=== PATIENT | male | born 1985 | race Caucasian/White ===

== ENCOUNTER 2016-10-04 17:36 | Emergency (ER) | payer OTHER ==
[2016-10-04 17:54] VITALS: BP 128/75
[2016-10-04] MEDS ORDERED: Acetaminophen TAB* 325 MG PO ONE (18:54)
--- NOTE | 2016-10-04 19:41 | RAD ---
Indication: Medial LEFT knee pain. Suspected meniscal tear. Assess for arthritis. Symptoms onset following injury. Comparison: No relevant prior exams available on the [facility] P[facility] for comparison. Technique: LEFT knee: Weightbearing AP, tunnel, lateral, sunrise views. Report: Normal articular alignment. Negative for effusion or fracture. Mild medial joint space narrowing and associated subchondral sclerosis at the medial tibial plateau. Unremarkable soft tissue contours. IMPRESSION: Probable partial thickness degeneration of the medial joint compartment hyaline articular cartilage.
--- NOTE | 2016-10-04 20:06 | ED ---
Lower Extremity - HPI Summary HPI Summary: Pt here w/ Lt knee pain starting yesterday. Was simply walking when he noticed pain along medial aspect of knee, moving into proximal tibia. Has some tingling along lateral aspect of tibia at rest, but resolvd w/ movement. Feels better elevated, slightly flexed and non weight bearing. Worse w/ weight bearing. Has not taken anything for pain as he doesn't like to take pills - agrees to try something today. Has h/o GI ulcers so will avoid NSAID's. No previous h/o knee injury and no trauma to explain sudden onset of pain yesterday. - History of Current Complaint Chief Complaint: EDExtremityLower Stated Complaint: LT KNEE INJURY Time Seen by Provider: 10/04/16 18:15 Hx Obtained From: Patient Pain Intensity: 4 - Allergies/Home Medications Allergies/Adverse Reactions: Allergies Allergy/AdvReac Type Severity Reaction Status Date / Time No Known Allergies Allergy Verified 03/22/16 15:29 PMH/Surg Hx/FS Hx/Imm Hx Previously Healthy: Yes Endocrine/Hematology History: Denies: Hx Anticoagulant Therapy, Hx Blood Disorders, Hx Diabetes, Hx Thyroid Disease Cardiovascular History: Denies: Hx Hypertension Respiratory History: Denies: Hx Asthma, Hx Chronic Obstructive Pulmonary Disease (COPD) GI History: Reports: Hx Ulcer - takes omeprazole as needed Musculoskeletal History: Reports: Other Musculoskeletal History - Lt ankle injury w/ lig tears as adolescent - no residual complications - Cancer History Cancer Type, Location and Year: none Infectious Disease History: No Infectious Disease History: Denies: Hx Hepatitis, Hx Human Immunodeficiency Virus (HIV), Traveled Outside the [place] in Last 30 Days - Family History Known Family History: Negative: Renal Disease, Blood Disorder, Other - NO CANCER HISTORY; UNCLE HAD KIDNEY STONES Family History: no cardio-vascular issues in family lineage - Social History Occupation: Employed Full-time - [employer] Alcohol Use: Occasionally Hx Substance Use: No Substance Use Type: Reports: None Hx Tobacco Use: Yes Smoking Status (MU): Former Smoker Review of Systems Constitutional: Negative Negative: Fever, Chills Negative: Chest Pain Negative: Shortness Of Breath Musculoskeletal: Other - see HPI Negative: Rash, Bruising Neurological: Other - see HPI Psychological: Normal All Other Systems Reviewed And Are Negative: Yes Physical Exam Triage Information Reviewed: Yes Vital Signs On Initial Exam: Initial Vitals Temp Pulse Resp BP Pulse Ox 98.2 F 89 17 128/75 97 10/04/16 17:51 10/04/16 17:51 10/04/16 17:51 10/04/16 17:51 10/04/16 17:51 Vital Signs Reviewed: Yes Appearance: Positive: Well-Appearing, No Pain Distress, Well-Nourished Skin: Positive: Warm, Dry - no erythema, no ecchymosis, no edema Head/Face: Positive: Normal Head/Face Inspection Eyes: Positive: Normal, EOMI, Conjunctiva Clear ENT: Positive: Hearing grossly normal Respiratory/Lung Sounds: Positive: Breath Sounds Present Cardiovascular: Positive: Normal, Pulses are Symmetrical in both Upper and Lower Extremities Musculoskeletal: Positive: Strength/ROM Intact, Pain @ - internal/external rotation of tibia/fibula; all other special tests are neg Neurological: Positive: Normal, Sensory/Motor Intact, Alert, Oriented to Person Place, Time, CN Intact II-III Psychiatric: Positive: Normal Diagnostics - Vital Signs Vital Signs Temp Pulse Resp BP Pulse Ox 10/04/16 17:54 98.2 F 89 18 128/75 98 10/04/16 17:51 98.2 F 89 17 128/75 97 - Laboratory Lab Statement: Any lab studies that have been ordered have been reviewed, and results considered in the medical decision making process. Lower Extremity Course/Dx - Course Course Of Treatment: Pt here w/ abrupt Lt knee pain w/o trauma. Clincal exam suspicious for medial meniscal injury vs. arthritis. XR reveals medial joint space narrowing and associated subchondral sclerosis at medial tibial plateau which correlates w/ clinical exam. Pt explains this is a worker's comp case and he does not have a PCP. Completed intial paperwork here today but explained he needs to establish w/ PCP who handles worker's comp cases. Pt agrees w/ plan. NOTE: no NSAID's w/ h/o GI ulcers. Recommend non-weight bearing and acetaminophen w/ use of topical analgesics. - Diagnoses Provider Diagnoses: Arthritis of left knee Discharge - Discharge Plan Condition: Stable Disposition: HOME Patient Education Materials: Arthritis (ED) Referrals: [facility]IAN REFERRAL [Outside]
== END 2016-10-04 20:30 | disposition home or self-care (01) ==
LOC: ED 17:36
DX: M17.12 Unilateral primary osteoarthritis, left knee (principal); M25.562 Pain in left knee; Z87.891 Personal history of nicotine dependence
CPT/HCPCS: 99281; A9270-GY

== ENCOUNTER 2017-11-04 08:34 | Emergency (ER) | payer OTHER ==
[2017-11-04 08:51] VITALS: BP 121/79
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
== END 2017-11-04 10:06 | disposition home or self-care (01) ==
LOC: UCEAST 08:34
DX: S22.32XA Fracture of one rib, left side, initial encounter for closed fracture (principal); Z87.891 Personal history of nicotine dependence; V29.3XXA Motorcycle rider (driver) (passenger) injured in unspecified nontraffic accident, initial encounter; Y92.9 Unspecified place or not applicable
CPT/HCPCS: 99211; G0463

== ENCOUNTER 2018-01-11 12:31 | Emergency (ER) | payer OTHER ==
[2018-01-11 12:38] VITALS: BP 132/89
[2018-01-11] MEDS ORDERED: Cyclobenzaprine TAB* 10 MG PO ONE (12:49)
[2018-01-11] MEDS ORDERED: Dexamethasone IV* 4 MG/ML 1 ML (4 MG) IV SLOW PU ONE (12:49)
[2018-01-11] MEDS ORDERED: Ketorolac INJ* 60 MG/2 ML VIAL IM ONE (12:49)
--- NOTE | 2018-01-11 12:54 | UC ---
Back Pain HPI - HPI Summary HPI Summary: Patient is a 32-year-old male who presents to the urgent care with a chief complaint of lower back pain. Patient reports that he was doing heavy lifting approximately 80 pounds and was reported on the floor he twisted to the right side and since then the patient is having low back pain. Patient denies any popping sounds or any history of low back pain. She denies any urinary or fecal dysfunction. The patient is able to ambulate with minimal discomfort. The pain is only 2-3 out of 10 and is not radiating. Patient denies any numbness or tingling in the lower extremities or any other complaint. Patient has no other complaints. - History of Current Complaint Chief Complaint: UCBackPain Stated Complaint: BACK PAIN Time Seen by Provider: 01/11/18 12:38 Pain Intensity: 4 - Allergies/Home Medications Allergies/Adverse Reactions: Allergies Allergy/AdvReac Type Severity Reaction Status Date / Time No Known Allergies Allergy Verified 01/11/18 12:38 PMH/Surg Hx/FS Hx/Imm Hx Previously Healthy: Yes Other History Of: Negative For: Anticoagulant Therapy - Surgical History Surgical History: Yes Surgery Procedure, Year, and Place: right index finger - Family History Known Family History: Negative: Hypertension, Renal Disease, Blood Disorder, Other - NO CANCER HISTORY; UNCLE HAD KIDNEY STONES Family History: no cardio-vascular issues in family lineage - Social History Alcohol Use: Rare Substance Use Type: None Smoking Status (MU): Former Smoker - Immunization History Hx Tetanus, Diphtheria Vaccination: Yes Vaccination Up to Date: No Review of Systems All Other Systems Reviewed And Are Negative: Yes - Comments Additional Review of Systems Comments: Constitutional: No Weight Change, No Fever, No Chills, No Night Sweats, No Fatigue, No Malaise ENT/Mouth: No Hearing Changes, No Ear Pain, No Nasal Congestion, No Sinus Pain, No Hoarseness, No sore throat, No Rhinorrhea, No Swallowing Difficulty Eyes: No Eye Pain, No Swelling, No Redness, No Foreign Body, No Discharge, No Vision Changes Cardiovascular: No Chest Pain, No SOB, No PND, No Dyspnea on Exertion, No Orthopnea, No Claudication, No Edema, No Palpitations Respiratory: No Cough, No Sputum, No Wheezing, No Smoke Exposure, No Dyspnea Gastrointestinal: No Nausea, No Vomiting, No Diarrhea, No Constipation, No Pain , No Heartburn, No Anorexia, No Dysphagia, No Hematochezia, No Melena, No Flatulence, No Jaundice Genitourinary: No Dysmenorrhea, No Dyspareunia, No Dysuria, No Urinary Frequency , No Hematuria, No Urinary Incontinence, No Urgency, No Flank Pain, No Urinary Flow Changes, No Hesitancy Musculoskeletal: No Arthralgias, No Myalgias, No Joint Swelling, No Joint Stiffness, Positive Back Pain, No Neck Pain, No Injury History Skin: No Skin Lesions, No Pruritus, No Hair Changes, No Breast/Skin Changes, No Nipple Discharge Physical Exam - Summary Physical Exam Summary: General: Patient is a well developed male without any distress that is lying comfortably in the stretcher. Skin: [place], warm, dry HEAD AND FACE: No signs of trauma. EYES: PERRLA, EOMI x 2. EARS: Hearing grossly intact. MOUTH: Oropharynx within normal limits. NECK: Supple, trachea is midline, no adenopathy, no JVD. CHEST: Symmetric, no tenderness at palpation LUNGS: CTA bilaterally, no rales, rhonchi or wheezing CVS: RRR, no murmur, rub, or gallop ABDOMEN: soft and Nontender without masses, no guarding or rebound. Bowel sounds are active. No Hepatosplenomegaly. No signs of inguinal hernias. BACK: Patient walked in to the room with symmetric ambulation, No signs of limping, antalgic, able to bear weight. No signs of trauma, no soft tissue ecchymosis. Positive paraspinal muscle tenderness in the lumbar spine. No masses palpated. No point tenderness. No CVAT, no flank ecchymosis . No sacroiliac notch tenderness, No saddle anesthesia. ROM: flexion, extension, lateral bending and rotation limited secondary to pain. Straight Leg Raise: Negative. s. Patellar reflexes: brisk, symmetric Muscle strength lower extremities: Dorsiflexion, plantar flexion of ankles normal. Heel, toe walk normal. Pulses: Femoral, popliteal, posterior tibial, and pedal pulses strong and palpable. Rectal: Patient refused the exam. Triage Information Reviewed: Yes Vital Signs: Initial Vital Signs Temp 97.7 F 01/11/18 12:34 Pulse 78 01/11/18 12:34 Resp 18 01/11/18 12:34 BP 132/89 01/11/18 12:34 Pulse Ox 100 01/11/18 12:34 Back Pain Course/Dx - Course Course Of Treatment: Patient declined any images. He thinks that he pulled a muscle which I agree. The patient is able to ambulate with no discomfort. Therefore the patient was given Toradol, Flexeril and the Decadron. I believe these medications would help and decreased inflammation. Since the patient doesn't have any urinary of fecal dysfunction there is low suspicion for cauda equina, or any other this point diseases. Patient agrees with the current care , he was given a prescription for ibuprofen, Medrol Dosepak and Flexeril. However he was giving instructions to return to the urgent care or go to the emergency department if he develops any urinary or fecal dysfunction, numbness or weakness in the lower extremities. The patient understands and agrees. Patient is hemodynamically stable alert and oriented 3. Patients blood pressure was noted to be elevated. The patient was instructed to follow up with primary care provider for reassessment of increased blood pressure. - Differential Dx/Diagnosis Differential Diagnosis/HQI/PQRI: Cauda Equina Syndrome, Compressive Cord Syndrome, Strain, Sprain Provider Diagnoses: Lumbago Discharge - Sign-Out/Discharge Documenting (check all that apply): Patient Departure All imaging exams completed and their final reports reviewed: No Studies - Discharge Plan Condition: Stable Disposition: HOME Prescriptions: Cyclobenzaprine TAB* [Flexeril 10 MG TAB*] 10 mg PO TID PRN #12 tab PRN Reason: spasm Ibuprofen TAB* [Motrin TAB* 600 MG] 600 mg PO Q8H PRN #30 tab PRN Reason: Pain methylPREDNISolone [Medrol Dosepak 4 MG*] 0 mg PO .SEE PRINCE INSTRUCTION #1 prince Patient Education Materials: Low Back Strain (ED), Back Pain (ED) Referrals: No Primary Care Phys,NOPCP [Primary Care Provider] - [facility] [place] [facility] REFERRAL [Outside] Additional Instructions: Take medications as instructed and adhere to plan Take Acetaminophen or ibuprofen for pain or fever Increase your fluid intake Return to the or go to the emergency department if symptoms worsen Follow-up with primary care physician in next 2-3 days - Billing Disposition and Condition Condition: STABLE Disposition: Home
== END 2018-01-11 13:39 | disposition home or self-care (01) ==
LOC: UCEAST 12:31
DX: M54.5 Low back pain (principal); R03.0 Elevated blood-pressure reading, without diagnosis of hypertension; Z87.891 Personal history of nicotine dependence
CPT/HCPCS: 96372; 96374; 99212; A9270-GY; G0463; J1100; J1885

== ENCOUNTER 2018-01-23 18:34 | Emergency (ER) | payer OTHER ==
[2018-01-23 18:47] VITALS: BP 135/85
--- NOTE | 2018-01-23 19:02 | UC ---
FLU HPI - HPI Summary HPI Summary: 32-year-old male presents with 2 day history of fever of 101 F, general malaise , body aches, nasal congestion, postnasal drip, and a nonproductive cough. His a single episode of vertigo this afternoon when he stood up after bending over. Denies ear pain or pressure, sore throat, chest pain, palpitations, shortness of breath, abdominal pain, nausea, or vomiting. Reports his daughter was ill with similar symptoms last week. - History of Current Complaint Chief Complaint: UCRespiratory Stated Complaint: COUGH,FLU SYMPTOS Time Seen by Provider: 01/23/18 18:42 Hx Obtained From: Patient Onset/Duration: Gradual Onset, Lasting Days - 2 Severity Initially: Mild Pain Intensity: 4 Associated Signs & Symptoms: Positive: Fever, Myalgia, Cough, Nasal Congestion, Headache. Negative: Sore Throat, Vomiting, Diarrhea - Allergy/Home Medications Allergies/Adverse Reactions: Allergies Allergy/AdvReac Type Severity Reaction Status Date / Time peanut Allergy Swelling Verified 01/23/18 18:47 Of Face,Lips,& Throat Home Medications: Home Medications Dm/Acetaminophen/Doxylamine [Tgt Cold/Flu Relief Multi] 1 liq PO ONCE PRN [History Confirmed 01/23/18] PMH/Surg Hx/FS Hx/Imm Hx Previously Healthy: Yes - denies significant past medical history Other History Of: Negative For: Anticoagulant Therapy - Surgical History Surgical History: Yes Surgery Procedure, Year, and Place: right index finger - Family History Family History: Noncontributory - Social History Occupation: Employed Full-time Lives: With Family Alcohol Use: Rare Substance Use Type: None Smoking Status (MU): Former Smoker - Immunization History Hx Tetanus, Diphtheria Vaccination: Yes Vaccination Up to Date: No Review of Systems Constitutional: Fever, Chills, Fatigue, Other - General malaise and myalgias Skin: Negative ENT: Nasal Discharge Respiratory: Cough Cardiovascular: Negative Gastrointestinal: Negative Is Patient Immunocompromised?: No All Other Systems Reviewed And Are Negative: Yes Physical Exam Triage Information Reviewed: Yes Appearance: No Pain Distress, Well-Nourished Vital Signs: Initial Vital Signs Temp 100.1 F 01/23/18 18:42 Pulse 113 01/23/18 18:42 Resp 18 01/23/18 18:42 BP 135/85 01/23/18 18:42 Pulse Ox 97 01/23/18 18:42 Eyes: Positive: Conjunctiva Clear. Negative: Discharge ENT: Positive: Hearing grossly normal, Pharyngeal erythema - Mild with postnasal drip, Nasal congestion, TMs normal, Uvula midline. Negative: Nasal drainage, Tonsillar swelling, Tonsillar exudate, Trismus, Muffled voice, Hoarse voice, Sinus tenderness Neck: Positive: Supple, Nontender, No Lymphadenopathy Respiratory: Positive: Chest non-tender, Lungs clear, Normal breath sounds, No respiratory distress Cardiovascular: Positive: RRR, No Murmur, Tachycardia Neurological: Positive: Alert Skin Exam: Normal Flu Course/Dx - Course Course Of Treatment: 32-year-old male with 2 day history of flu-like symptoms. Exam was consistent with a viral URI. Rapid strep test was negative. Recommend symptomatic treatment. Reviewed warning symptoms with patient. Verbalizes understanding and agrees with plan of care. - Differential Dx/Diagnosis Differential Diagnosis/HQI/PQRI: Influenza, Upper Respiratory Infection Provider Diagnoses: viral URI, elevated blood pressure reading Discharge - Sign-Out/Discharge Documenting (check all that apply): Patient Departure All imaging exams completed and their final reports reviewed: No Studies - Discharge Plan Condition: Stable Disposition: HOME Prescriptions: Benzonatate CAP* [Tessalon 100 MG CAP*] 100 mg PO TID PRN #30 cap PRN Reason: Cough Patient Education Materials: Upper Respiratory Infection (ED) Referrals: No Primary Care Phys,NOPCP [Primary Care Provider] - Additional Instructions: The rapid flu test performed in the clinic today was negative. Your symptoms are likely from another viral infection. Viral infections do not respond to antibiotics and typically run their course over 7-10 days. Use [id number] acetaminophen (Tylenol) state or ibuprofen (Advil, Motrin) according to directions as needed for any aches, pains, and fever. Be sure to stay well hydrated especially if your running fever. You may use an [id number] decongestant such as Sudafed for the nasal congestion and pressure. Use Tessalon Perles 1 cap every 8 hours as needed for cough. Your blood pressure was mildly elevated in the clinic today. It is recommended that you follow-up with your primary care provider to have this checked. Follow -up in In one week if symptoms persist. Seek immediate medical attention in the emergency room if you have persistent fever greater than 100.5 F despite taking acetaminophen or ibuprofen, he developed chest pain, shortness of breath, become weak or dizzy, have any worsening of symptoms. - Billing Disposition and Condition Condition: STABLE Disposition: Home
== END 2018-01-23 19:28 | disposition home or self-care (01) ==
LOC: UCEAST 18:34
DX: J06.9 Acute upper respiratory infection, unspecified (principal)
CPT/HCPCS: 99212; G0463

== ENCOUNTER 2018-06-24 21:16 | Emergency (ER) | payer OTHER ==
[2018-06-25] MEDS ORDERED: Dexamethasone IV* 4 MG/ML 1 ML (4 MG) IM ONE (00:34)
[2018-06-25] MEDS ORDERED: Ketorolac INJ* 30 MG/ML 1 ML VIAL IM ONE (00:34)
--- NOTE | 2018-06-25 00:52 | ED ---
Neck Pain - HPI Summary HPI Summary: 33-year-old male presents with neck pain today. He states that it started gradually while he he was working. he states took a break and was unable to do his work anymore. He was lifting things overhead. Denies any history of neck injuries. No history neck pain. He states that he is having some pain radiating into left shoulder. Denies any weakness. States he has had some tingling. Has full range of motion with pain. No medical conditions. Has not tried anything for his symptoms. No other injury. - History of Current Complaint Chief Complaint: EDNeckComplaint Stated Complaint: "FELT POP IN MY NECK WHILE WORKING" PER PT Time Seen by Provider: 06/25/18 00:26 Pain Intensity: 7 - Allergies/Home Medications Allergies/Adverse Reactions: Allergies Allergy/AdvReac Type Severity Reaction Status Date / Time peanut Allergy Swelling Verified 06/24/18 21:50 Of Face,Lips,& Throat PMH/Surg Hx/FS Hx/Imm Hx Endocrine/Hematology History: Denies: Hx Anticoagulant Therapy, Hx Blood Disorders, Hx Diabetes, Hx Thyroid Disease Cardiovascular History: Denies: Hx Hypertension Respiratory History: Denies: Hx Asthma, Hx Chronic Obstructive Pulmonary Disease (COPD) GI History: Reports: Hx Ulcer - takes omeprazole as needed Musculoskeletal History: Reports: Other Musculoskeletal History - Lt ankle injury w/ lig tears as adolescent - no residual complications - Cancer History Cancer Type, Location and Year: none - Surgical History Surgery Procedure, Year, and Place: right index finger Infectious Disease History: No Infectious Disease History: Denies: Hx Hepatitis, Hx Human Immunodeficiency Virus (HIV), Traveled Outside the [place] in Last 30 Days - Family History Known Family History: Negative: Hypertension, Renal Disease, Blood Disorder, Other - NO CANCER HISTORY; UNCLE HAD KIDNEY STONES Family History: Noncontributory - Social History Alcohol Use: Rare Hx Substance Use: No Substance Use Type: Reports: None Hx Tobacco Use: Yes Smoking Status (MU): Former Smoker Review of Systems Negative: Fever Negative: Chest Pain Negative: Shortness Of Breath Positive: Myalgia - neck pain All Other Systems Reviewed And Are Negative: Yes Physical Exam Triage Information Reviewed: Yes Vital Signs On Initial Exam: Initial Vitals Temp Pulse Resp BP Pulse Ox 97.6 F 81 16 134/73 100 06/24/18 21:47 06/24/18 21:47 06/24/18 21:47 06/24/18 21:47 06/24/18 21:47 Vital Signs Reviewed: Yes Appearance: Positive: Well-Appearing Skin: Positive: Warm, Dry Head/Face: Positive: Normal Head/Face Inspection Eyes: Positive: Normal, Conjunctiva Clear ENT: Positive: Pharynx normal Neck: Positive: Other: - tenderness side of neck, full ROM neck with pain Respiratory/Lung Sounds: Positive: Clear to Auscultation, Breath Sounds Present Cardiovascular: Positive: Normal, RRR Musculoskeletal: Positive: Normal, Strength/ROM Intact - upper extremities, Other - sensation grossly intact arms, good pulses Neurological: Positive: Normal Psychiatric: Positive: Normal Diagnostics - Vital Signs Vital Signs Temp Pulse Resp BP Pulse Ox 06/24/18 23:49 97.6 F 88 16 129/74 98 06/24/18 21:47 97.6 F 81 16 134/73 100 - Laboratory Lab Statement: Any lab studies that have been ordered have been reviewed, and results considered in the medical decision making process. - CT neck CT Interpretation Completed By: Radiologist Summary of CT Findings: IMPRESSION: Normal cervical spine CT. Re-Evaluation - Re-Evaluation First Eval Re-Evaluation Time: 01:25 Change: Improved Comment: feeling better Neck Course/Dx - Course Course Of Treatment: 33-year-old male presents with neck pain today. He states that it started gradually while he he was working. He was lifting things overhead. Denies any history of neck injuries. No history neck pain. He states that he is having some pain radiating into left shoulder. Denies any weakness. States he has had some tingling. Has full range of motion with pain. No medical conditions. Has not tried anything for his symptoms. No other injury. On exam tenderness center neck. Neurovascular intact. CT is normal. Gave Decadron and Toradol and feeling better. will treat with robaxin and medrol. told establish care with primary. patient understand and agrees with plan. - Diagnoses Differential Dx/HQI/PQRI: Positive: Sprain, Strain, Other - hernia Provider Diagnoses: Neck pain Discharge - Sign-Out/Discharge Documenting (check all that apply): Patient Departure Patient Received Moderate/Deep Sedation with Procedure: No - Discharge Plan Condition: Good Disposition: HOME Prescriptions: Methocarbamol TAB* [Robaxin 500 MG TAB*] 500 mg PO TID PRN #15 tab PRN Reason: Pain methylPREDNISolone [Medrol Dosepak 4 MG*] 4 mg PO .SEE PRINCE INSTRUCTION #1 packet Patient Education Materials: Neck Pain (ED) Forms: *Work Release Referrals: [facility] [Outside] Additional Instructions: Follow directions on package for Medrol pack Take muscle relaxers three times a day Use ibuprofen or Tylenol for pain every 6 hours ice/heat area, move as much as possible establish care with primary to follow up Return to ED if develop any new or worsening symptoms - Billing Disposition and Condition Condition: GOOD Disposition: Home
[2018-06-25] MEDS ORDERED: Methocarbamol TAB* 500 MG PO ONE (01:27)
[2018-06-25 01:41] VITALS: BP 136/87
== END 2018-06-25 01:40 | disposition home or self-care (01) ==
LOC: ED 21:16
DX: M54.2 Cervicalgia (principal); Z87.891 Personal history of nicotine dependence
CPT/HCPCS: 72125; 96372; 99282; A9270-GY; J1100; J1885